=== PATIENT | female | born 1950 | race Caucasian/White ===

== ENCOUNTER 2016-06-10 10:14 | Inpatient (IN) | payer OTHER ==
--- NOTE | ~2016-06-10 | OP ---
Record Of Operation [facility] [address] [facility] [facility] [place]. [address] NAME: ALEXANDER HILLS : 52 STATUS : ADM IN PAT#: [id number] AGE: 65 ADM/REG DATE : 06/10/16 MR#: [id number] REPORT SERV DATE: 06/11/16 DICTATED BY: MUKUND NAVARRO II DATE: 06/10/16 REPORT STATUS : Draft TRANSCRIBED BY: MODL DATE: 06/10/16 DATE OF PROCEDURE: 06/10/2016 PREOPERATIVE DIAGNOSES: 1. Cervical myeloradiculopathy. 2. C6-7 large foraminal herniated nucleus pulposus. 3. Left upper extremity myeloradiculopathy. 4. Discogenic neck pain. POSTOPERATIVE DIAGNOSES: 1. Cervical myeloradiculopathy. 2. C6-7 large foraminal herniated nucleus pulposus. 3. Left upper extremity myeloradiculopathy. 4. Discogenic neck pain. PROCEDURES: Stage I (anterior): 1. C5-6, C6-7 anterior interbody arthrodesis. 2. Application of prosthetic devices C5-6, C6-7. 3. Anterior instrumentation C5-6, C6-7. 4. Use of allograft substitute and bone marrow aspirate. Stage II (posterior): 1. Posterior left C7-T1 facetectomy. 2. Posterolateral arthrodesis, C7-T1. 3. Posterior nonsegmental instrumentation, C7-T1. 4. Use of local autograft and allograft substitute. 5. Use of bone morphogenetic protein. 6. Use of the microscope and stereotactic spinal imaging. SURGEON: Mukund Navarro M.D. FLUIDS: 2 liters lactated Ringer's. ESTIMATED BLOOD LOSS: 75 mL. DRAINS: One. COMPLICATIONS: None. ANTIBIOTIC: Preoperatively. IMPLANTS: 1. Globus, anterior and posterior. 2. Spinal cord monitoring, stable throughout the procedure. PREOPERATIVE HISTORY: This is a very friendly 65-year-old female with neck and arm pain Record Of Operation [place] [address] [facility] [place]. [address] NAME: ALEXANDER HILLS : 52 STATUS : ADM IN PAT#: [id number] AGE: 65 ADM/REG DATE : 06/10/16 MR#: [id number] REPORT SERV DATE: 06/11/16 DICTATED BY: MUKUND NAVARRO II DATE: 06/10/16 REPORT STATUS : Draft TRANSCRIBED BY: MODL DATE: 06/10/16 complaints consistent with myeloradiculopathy. We discussed the fact that C7-T1 would be very difficult to access safely from the anterior perspective. We discussed an anterior- posterior surgery, and she understood the risks and the benefits after our conversation. DESCRIPTION OF PROCEDURE: After informed consent was obtained, the patient was brought to the operating room at her request and general anesthesia achieved. She was placed in a supine position and the neck and iliac crest prepped and draped in a sterile fashion. 5 mL of bone marrow was aspirated, followed by a right-sided longitudinal incision. The retropharyngeal approach was performed, and the subperiosteal exposure was completed from C5 C7. The [employer] retractors were placed, followed by placement of the Sparks pins. The microscope was then brought into place, and under microscopic visualization, diskectomy was initiated at C5-6 with the knife, followed by use of the pituitary rongeurs, Kerrison rongeurs, and curettes. The endplates were denuded of their cartilage with the high-speed shivam and the Kerrison rongeurs and the curettes. The posterior vertebral body osteophytes were now removed at C5-6 and the posterior longitudinal ligament now removed to fully ensure the adequacy of the decompression at C5-6. The foraminotomies were completed and the prosthetic device chosen and placed at C5-6. This contained allograft substitute and bone marrow aspirate. Next, the C6-7 level was addressed in a similar manner with diskectomy and endplate preparation. Following diskectomy, the posterior vertebral body osteophytes were removed and the anterior canal well decompressed with the Kerrison rongeurs. The cord and nerve roots were well decompressed. The prosthetic device was then trialed and chosen and placed at C6-7. Next, the Sparks pins were removed and the anterior fixation device chosen and placed at C5- 6 and C6-7. This was a separate plate and screw construct. Two screws were placed into C5, C6, and C7 and multiplanar imaging confirmed acceptable placement of the implants. A deep drain was placed secondary to mild cancellous bone bleeding. The standard closure was performed and then the patient placed into the [facility] tongs. She was then turned into prone position and the posterior neck and upper thoracic region prepped and draped in a sterile fashion. The intraoperative CT scan was completed. The stereotactic guidance was then used throughout the case. Next, the incision was made and the subperiosteal exposure was completed bilaterally from C7 T1. The lateral mass screws were placed into C7 and the pedicle screws into T1 using stereotactic guidance. A repeat CT scan confirmed acceptable placement of the implants. Next, the microscope was brought into place, and under microscopic visualization, the facetectomy was performed at C7-T1. The spinal cord was identified and the exiting C8 nerve root identified. There was a large foraminal HNP, which was now largely removed with the pituitary rongeurs. At this point, the region was irrigated. Next, we then decorticated the facet and the posterior elements on the right side, followed by placement of bone morphogenetic protein and local autograft. Allograft substitute was also placed. A deep drain was placed. Prior to placement of the fusion materials, the area was irrigated. Standard closure was performed, and the patient was extubated and Record Of Operation [place] [id number] [facility] [place]. [address] NAME: ALEXANDER HILLS : 52 STATUS : ADM IN PAT#: [id number] AGE: 65 ADM/REG DATE : 06/10/16 MR#: [id number] REPORT SERV DATE: 06/11/16 DICTATED BY: MUKUND NAVARRO II DATE: 06/10/16 REPORT STATUS : Draft TRANSCRIBED BY: MARCELL DATE: 06/10/16 transferred to PACU. KAE/MARCELL Mukund Navarro II, M.D. / [id number] CC: Lucila Sellers II, NP
--- NOTE | ~2016-06-10 | DS ---
Discharge Summary [facility] [address] [place]. [address] NAME: ALEXANDER HILLS : 52 STATUS : DIS IN PAT#: [id number] AGE: 65 ADM/REG DATE : 06/10/16 MR#: [id number] REPORT SERV DATE: 06/24/16 DICTATED BY: MUKUND NAVARRO II DATE: 06/21/16 REPORT STATUS : Draft TRANSCRIBED BY: MARCELL DATE: 06/21/16 Data Collection from hospitalization DISCHARGE DIAGNOSES: 1. Cervical myeloradiculopathy. 2. C6-7 large foraminal herniated nucleus pulposus. 3. Left upper extremity myeloradiculopathy. 4. Discogenic neck pain. 5. Hypertension. 6. Cataracts. 7. Gastroesophageal reflux disease. 8. Irritable bowel syndrome. 9. Ulcer disease. 10.Former smoker. CONSULTATIONS: None. PROCEDURES PERFORMED: Stage I (anterior): C5-C6 and C6-C7 anterior interbody arthrodesis, application of prosthetic devices at C5-C6 and C6-C7, anterior instrumentation at C5-C6 and C6-C7, use of allograft substitute and bone marrow aspirate. Stage II (posterior): Posterior left C7-T1 facetectomy, posterolateral arthrodesis at C7-T1, posterior nonsegmental instrumentation at C7-T1, use of local autograft and allograft substitute, use of bone morphogenic protein, use of microscope and stereotactic spinal imaging on 06/10/2016. PATHOLOGY: Vertebral bone and soft tissue, cervical spine - no specific microscopic abnormality. MEDICATIONS: ProAir two puffs via inhaler as needed, albuterol 0.63 mg via inhaler as needed, Elavil 150 mg at bedtime, Norvasc 5 mg daily, Lipitor 10 mg every day at bedtime, Coreg 3.125 mg twice a day, vitamin B12 1 mg IM every seven days as instructed, Valium 5 mg every six hours as needed, Bentyl 20 mg four times a day as needed, Lasix 40 mg daily as needed, M-Clear with Codeine 5 mL every four hours as needed, Clarence 7.5/325 one tablet as needed, levothyroxine 175 mcg daily, Linzess 290 mcg daily, Singulair 10 mg at bedtime, Percocet 5/325 one to two tablets every four hours as needed, Protonix 40 mg daily, Klor-Con 20 mEq daily as needed, and Phenergan 25 mg every six hours as needed. CONDITION AT DISCHARGE: Stable. DISPOSITION: The patient was discharged home on a regular diet with activities as instructed. She would follow up with me on 07/03/2016. HOSPITAL COURSE: This is a 65-year-old female who has complained of cervical spine-related symptoms. The symptoms are located in the neck with radiation into the left upper extremity with associated numbness and tingling. The patient reported having a pain level of 7 on a scale of 0-10. The patient has cervical myeloradiculopathy and C6-7 large foraminal herniated nucleus pulposus. There is left upper extremity myeloradiculopathy and discogenic neck pain. Treatment options were discussed and it was elected to proceed with surgical Discharge Summary [address] [address] NAME: ALEXANDER HILLS : 52 STATUS : DIS IN PAT#: [id number] AGE: 65 ADM/REG DATE : 06/10/16 MR#: [id number] REPORT SERV DATE: 06/24/16 DICTATED BY: MUKUND NAVARRO II DATE: 06/21/16 REPORT STATUS : Draft TRANSCRIBED BY: MODEdwin DATE: 06/21/16 intervention. She was admitted to the hospital at this time for further evaluation and treatment. Upon admission, she was taken to the operating room where she underwent the above-mentioned procedure. She tolerated this well, and there were no complications. On postop day #1, she had no numbness or tingling. She had a normal respiratory effort. Over the next couple of days, she continued to progress. She was resting well. Discharge planning was performed. On 06/14/2016, she was apprehensive about going home, but her family was going to be staying with her. Discharge instructions were given. Due to her improved and stable condition, she was discharged home with the above-stated instructions. Information collected by: Chayo Quintana I submit the above information as my discharge summary. SHEKHAR/MARCELL Mukund Navarro II, M.D. / [id number] CC: Lucila Sellers II, M.D. Madeline Grotefendt, FNP
[~2016-06-10 10:14] MED LIST: ACCUNEB INH; ALBUTEROL0.63 MG/3 INH; AMIT100 PO; AMIT25 PO; AMIT50 PO; AMIT75 PO; ASAB PO; B121000P IM; BENTYL10 PO; COREG3 PO; COREG6 PO; DOX10 PO; EXFORGE PO; EXFORGE1 TA2 PO; FLEX PO; FLUOXETINE; KLOR-CON M2020 MEQ PO; L40 PO; LEVOTHROID125 MCG PO; LEVOTHROID150 MCG PO; LEVOTHYROXIN150 MCG PO; LIBRAX PO; LINZESS 290 M290 MCG PO; LIPITOR10 PO; LIPITOR40 PO; LORTAB 5 PO; LOTE20 PO; M-CLEAR WC PO; METPAKSF PO; MIRALAXPKT PO; MULTIPLE VIT PO; MYRBETRIQ25 MG PO; NICODERM C14 MG/24 H TOP; NITROQUICK0.4 MG SL; NORCO1 TA2 PO; NORV5 PO; NTG150 SL; PEP20 PO; PR25 PO; PROAIR HFA INH; PROTONIX PO; PROZAC PO; REG PO; SINGULAIR1 PO; SPIRIVA INH; SYNTHROID137 MCG PO; TRAZ50 PO; ULTRAM50 PO; VITAMIN B-121000 MC1 SL; VITAMIN D31000 UNIT PO; ZOCOR20 PO; ZOCOR40 PO
[2016-06-14] MEDS ORDERED: V5 PO (09:38)
[2016-06-14] MEDS ORDERED: PCET PO (09:39)
[2016-06-17] MEDS ORDERED: LIPITOR10 PO (14:33)
[2016-06-17] MEDS ORDERED: BENTYL20 PO (14:33)
[2016-06-17] MEDS ORDERED: L40 PO (14:34)
[2016-06-17] MEDS ORDERED: EXFORGE1 TA2 PO (14:34)
[2016-06-17] MEDS ORDERED: KLOR-CON M1010 MEQ PO (14:34)
[2016-06-17] MEDS ORDERED: SINGULAIR1 PO (14:35)
[2016-06-17] MEDS ORDERED: LEVOTHYROXIN175 MCG PO (14:35)
[2016-06-17] MEDS ORDERED: AMITRIPTYLIN150 MG PO (14:35)
[2016-06-17] MEDS ORDERED: V5 PO (14:35)
[2016-06-17] MEDS ORDERED: COREG6 PO (14:36)
[2016-06-17] MEDS ORDERED: FLEX PO (14:36)
[2016-06-17] MEDS ORDERED: PROAIR HFA INH (14:37)
[2016-06-17] MEDS ORDERED: MULTIVIT/MIN PO (14:37)
[2016-06-17] MEDS ORDERED: B121000P IM (14:37)
[2016-06-17] MEDS ORDERED: ALBUTEROL0.63 MG/3 INH (14:38)
[2016-06-17] MEDS ORDERED: VITAMIN D OTC PO (14:38)
[2016-06-17] MEDS ORDERED: PROTONIX PO (14:39)
[2016-06-17] MEDS ORDERED: PCET PO (14:39)
[2016-06-21] MEDS ORDERED: COLACEUDL PO (12:19)
[2016-06-21] MEDS ORDERED: NEUR300 PO (12:20)
[2016-06-21] MEDS ORDERED: MUCINEX1200 MG PO (12:22)
[2016-06-21] MEDS ORDERED: LINZESS 145 M145 MCG PO (12:23)
[2016-06-21] MEDS ORDERED: LEVAQUIN750 MG PO (12:30)
== END 2016-06-14 12:15 | disposition home or self-care (01) | DRG 454 ==
LOC: SDC/OF 10:14 → 3SO 19:28
PROVIDERS: Orthopaedic Surgery
PROC: 4A11X4G Monitoring of Peripheral Nervous Electrical Activity, Intraoperative, External Approach (ICD-10-PCS; 2016-06-10)
PROC: 0RG20A0 Fusion of 2 or more Cervical Vertebral Joints with Interbody Fusion Device, Anterior Approach, Anterior Column, Open Approach (ICD-10-PCS; principal; 2016-06-10 14:00)
PROC: 0RG4071 Fusion of Cervicothoracic Vertebral Joint with Autologous Tissue Substitute, Posterior Approach, Posterior Column, Open Approach (ICD-10-PCS; 2016-06-10 14:00)
PROC: 07DR3ZZ Extraction of Iliac Bone Marrow, Percutaneous Approach (ICD-10-PCS; 2016-06-10 14:00)
DX: M50.122 Cervical disc disorder at C5-C6 level with radiculopathy (principal); M50.022 Cervical disc disorder at C5-C6 level with myelopathy; E66.01 Morbid (severe) obesity due to excess calories; I10 Essential (primary) hypertension; G47.33 Obstructive sleep apnea (adult) (pediatric); E78.00 Pure hypercholesterolemia, unspecified; I25.10 Atherosclerotic heart disease of native coronary artery without angina pectoris; K21.9 Gastro-esophageal reflux disease without esophagitis; E03.9 Hypothyroidism, unspecified; Z68.37 Body mass index [BMI] 37.0-37.9, adult
CPT/HCPCS: 80048; 82962; 85014; 85018; 87641; 88304; 88311; 93005; 97116-GP; 97161-GP; A9270-GY; C1713; C1768; J0690; J1170; J2250; J2370; J2405; J2710; J3010